=== PATIENT | male | born 1995 | race Caucasian/White ===

== ENCOUNTER 2018-03-24 06:14 | Day surgery (SDC) | payer OTHER ==
[~2018-03-24 06:14] MED LIST: CEFAZOLIN 1 GM/50 ML (PMX) 50 ML IVPB; SOD CHLORIDE 0.9% 1,000 ML IV
[2018-03-24] MEDS ORDERED: PHENYLephrine 0.25% 15 ML NAS SPRAY (06:53)
[2018-03-24] MEDS ORDERED: PROPOFOL 200 MG INJ (07:00)
[2018-03-24] MEDS ORDERED: LIDOCAINE 2% (MDV) 20 ML INJ (07:25)
[2018-03-24] MEDS ORDERED: BUPIVACAINE 0.25% (MPF) 30 ML INJ (07:25)
[2018-03-24] MEDS ORDERED: MIDAZOLAM 1 MG/ML 2 ML INJ (07:47)
[2018-03-24] MEDS ORDERED: FENTAnyl 50 MCG/ML VIAL (07:48)
[2018-03-24] MEDS ORDERED: CEFAZOLIN 1 GM INJ (07:49)
[2018-03-24] MEDS ORDERED: ONDANSETRON 4 MG INJ (08:03)
[2018-03-24] MEDS ORDERED: KETOROLAC 30 MG INJ (08:04)
[2018-03-24] MEDS ORDERED: METOCLOPRAMIDE 10 MG INJ (08:04)
[2018-03-24] MEDS: BUPIVACAINE 0.25% (MPF) 30 ML INJ (08:11)
[2018-03-24] MEDS ORDERED: IBUPROFEN 800 MG TAB PO (08:30)
== END 2018-03-24 10:15 | disposition home or self-care (01) ==
LOC: SDS 06:14
DX: M79.5 Residual foreign body in soft tissue (principal); L90.5 Scar conditions and fibrosis of skin
CPT/HCPCS: 14040; 72020; 88307